=== PATIENT | female | born 1950 | race Caucasian/White ===

== ENCOUNTER → 2017-11-10 | Outpatient (CLI) | payer OTHER ==
[~2017-11-10] MED LIST: ALPRAZOLAM 0.50.5 M1 PO; AMITRIPTYLINE H50 M4 PO; AMITRIPTYLINE100 MG PO; BISACODYL SUPP10 MG RECTAL; CELEXA10 MG PO; CIPRO250 M1 PO; CITRATE OF MAG296 ML PO; COLACE100 MG PO; COREG3.125 MG PO; CYMBALTA60 MG PO; DESITIN113 GM TOP; DETROL LA4 MG PO; DUONEB 2.5-0.5 M3 ML INH; ENOXAPARIN40 MG/0.1 SUBQ; FLEXERIL PO; FLUTICASONE-SA1 EAC2 INH; HUMALOG100 UNIT/1 SUBQ; HYDROCODON-ACE1 EAC8 PO; LANTUS SUBQ; LASIX 20 MG TAB20 MG PO; LEVEMIR SUBQ; LEVOTHYROXIN0.137 M1 PO; MILK OF MA2400 MG/10 PO; MIRALAX17 GM PO; NITROSTAT0.4 M1 SUBLING; NOVOLOG100 UNIT/1 SUBQ; NYSTATIN1 EA10 TOP; ONDANSETRON ODT4 MG PO; PACERONE 200 M200 M1 PO; PERCOCET PO; POTASSIUM20 PO; REGLAN 10 MG TA10 MG PO; ROXICODONE5 MG PO; SYNTHROID150 MCG PO; TYLENOL325 MG PO; VANCOMYCIN1.25 GM/25 IV; VENTOLIN HFA 1818 GM INH; XANAX 0.5 MG0.5 MG PO; XARELTO10 MG PO; ZANTAC 150MG T150 MG PO
== END ==
LOC: M.RAD 07:54
DX: Z47.89 Encounter for other orthopedic aftercare (principal); S72.491D Other fracture of lower end of right femur, subsequent encounter for closed fracture with routine healing; X58.XXXD Exposure to other specified factors, subsequent encounter

== ENCOUNTER → 2017-12-06 | Outpatient (CLI) | payer OTHER | LOC: M.RAD 10:45 | DX: S72.401A Unspecified fracture of lower end of right femur, initial encounter for closed fracture (principal); X58.XXXA Exposure to other specified factors, initial encounter; Y93.89 Activity, other specified; Y92.89 Other specified places as the place of occurrence of the external cause; Y99.8 Other external cause status ==

== ENCOUNTER → 2017-12-15 | Outpatient (CLI) | payer OTHER | LOC: M.RAD 10:46 | DX: S72.91XA Unspecified fracture of right femur, initial encounter for closed fracture (principal); Z47.1 Aftercare following joint replacement surgery; X58.XXXA Exposure to other specified factors, initial encounter; Y93.89 Activity, other specified; Y92.89 Other specified places as the place of occurrence of the external cause; Y99.8 Other external cause status ==